=== PATIENT | female | born 1980 ===

== ENCOUNTER 2018-02-12 04:43 | Inpatient (IN) | payer MEDICAID ==
[2018-02-12] MEDS ORDERED: Phenaphthazine-PH Test Paper VI ONE (05:11)
[2018-02-12 05:43] VITALS: BMI 44.9
--- NOTE | 2018-02-12 05:47 | OBHP ---
Datetime: 02/12/2018 05:44 IP Adm Impression: Term, intrauterine IP Admit Plan: Admit to unit; Initiate labor protocol Admit Comment, IP Provider: 37 yo G1 at 40+3 wks w/ EDC 02/09/2018 by LMP, c/w 12 wk u/s who reports that she has been leaking brown fluid since . 02/08/2017, reports that she is "too much pain," pain became more intense at 5pm last night, Pt reports ctxns every 5 minutes. Pt denies VB and rep orts FM. Pt was seen at [facility] on 02/10/2018 and was sent home. Pt received PN care at [facility]. PMH: Healthy PSH: None Meds: PNVs All: NKDA Soc hx: Pt denies tobaco, alcohol, and illicit drugs Fam hx: N/c [employer] hx: menarche at 15 yo, reg periods, pt denies STDs and abn paps PN labs: 07/27/2017 pap neg, Chlamydia/Gonorrhea/ Trich neg, O+, Ab neg, UDS neg FX neg, Hbg elect nl, Hep BsAg neg, HIV neg, Quantiferon neg Rubella Immune, SMA neg 07/31/2017 Panorama low risk, male fetus 09/21/2017 AFP neg, InformaSeq neg XY male 11/16/2017 RPR neg, HIV neg, 1 hr glucola 121 01/18/2018 GBS neg PE: AFVSS Gen'l pt appears very still in bed Heart: RRR Chest: Lungs CTA b/l Abd: soft, NT, gravid Ext: 1+ edema, NT Spec: brown d/c in vault, nitrazine neg, fern not seen EFM: as above Laurium: as above A/P: 37 yo G1 at 40+3 wks w/ light meconium seen in vault Will admit to L_D GBS neg FHT reactive Abdomen - PN: Normal Back - PN: Normal Lungs - PN: Normal Heart - PN: Normal General - PN: Normal FHR - Baseline A Provider: 120's Amniotic Fluid Color, Provider: Meconium, Light Membranes, Provider: Ruptured Contraction Comments Provider: irreg EGA AdmitDate IP: 40.3 Vital Signs Provider: Reviewed IP Indication for Induction: Not Applicable IP Chief Complaint: Uterine contractions; Suspected ruptured membranes NICHD Variability Prov Fetus A: Moderate 6-25bpm NICHD Accel Fetus A IP Provider: 15X15 FHR Category Provider Fetus A: Category I NICHD Decel Fetus A IP Provider: None Dilatation, Provider: 1 Effacement, Provider: 100 Station, Provider: -2 Genitourinary Exam: Normal Datetime: 02/12/2018 05:21 Extremities - PN: Normal
[2018-02-12 06:28] LABS: HEMOGLOBIN 11.9 g/dL (12.0-16.0); MEAN CELL VOLUME 96.8 fl (81.0-99.0); MEAN CORPUSCULAR HEMOGLOBIN 31.6 pg (27.0-31.0); MEAN CORPUSCULAR HGB CONC 32.6 g/dL (33.0-37.0); RBC 3.79 Mil/uL (3.80-5.20); WHITE BLOOD COUNT 9.2 K/uL (4.8-10.8)
[2018-02-12] MEDS: Lactated Ringer's 1,000 ML IV ONE ×2 (09:30→11:00)
[2018-02-12] MEDS ORDERED: Oxytocin 30 UNIT 30 UNITS/500 ML BAG IV ONE (09:33)
--- NOTE | 2018-02-12 11:54 | OBPN ---
Datetime: 02/12/2018 09:45 IP Informed Consent Obtain: Vaginal Delivery IP Procedures: Sterile Vag Exam IP Progress Plan: Continue present management Contraction Comments Provider: irregularly FHR - Baseline A Provider: 130 IP Progress Note Comment: Patient feeling some contractions, does not want anything for pain VE=1/100/-3 FHR = 130 mod jh, +accels no decels TOCO = ctxning q irregularly A/P 1. Patient 1cm dilated, will start Pitocin for augmentation 2. Continue CEFM and TOCO 3. Will re-evluate as needed NICHD Accel Fetus A IP Provider: 15X15 NICHD Variability Prov Fetus A: Moderate 6-25bpm Dilatation, Provider: 1 Effacement, Provider: 100 Station, Provider: -3 Datetime: 02/12/2018 05:44 Membranes, Provider: Ruptured Amniotic Fluid Color, Provider: Meconium, Light Vital Signs Provider: Reviewed FHR Category Provider Fetus A: Category I NICHD Decel Fetus A IP Provider: None
[2018-02-12] MEDS: Lactated Ringer's 1,000 ML IV SCH ×2 (12:00→16:00)
[2018-02-12] MEDS ORDERED: Nalbuphine HCL 10 mg/ml Ampule IVP PRN (17:11)
[2018-02-12] MEDS ORDERED: Nalbuphine HCL 10 mg/ml Ampule ONE (17:18)
[2018-02-12] MEDS ORDERED: Fentanyl/Bupivacaine HCl 250 ML EPI ONE (19:00)
--- NOTE | 2018-02-12 19:01 | OBPN ---
Datetime: 02/12/2018 18:57 IP Progress Impression: Normal progression of labor IP Informed Consent Obtain: Vaginal Delivery IP Procedures: Sterile Vag Exam IP Progress Plan: Continue present management Membranes, Provider: Bulging Amniotic Fluid Color, Provider: Bloody Contraction Comments Provider: q 4 FHR - Baseline A Provider: 140 IP Progress Note Comment: Patient feeling increased pain with contractions VE=4/80/-2, AROM FHR = 140 mod jh, +accels, no decels TOCO = contraction q 4 mins, Pitocin @ 8 mu/min A/P 1. continue augmentation with Pitocin 2. Patient would like epidural for pain 3. CEFM and TOCO Vital Signs Provider: Reviewed; Within Normal Limits NICHD Accel Fetus A IP Provider: 15X15 NICHD Variability Prov Fetus A: Moderate 6-25bpm Dilatation, Provider: 4 Effacement, Provider: 80 Station, Provider: -2 NICHD Decel Fetus A IP Provider: None
[2018-02-13] MEDS ORDERED: Lactated Ringer's 1,000 ML IV ONE (09:13)
[2018-02-13] MEDS ORDERED: ceFAZolin IV 2 gm in Dextrose 2 GM/50 ML BAG IVPB ONE (09:13)
[2018-02-13] MEDS ORDERED: OXYTOCIN/0.9 % NS 20 UNIT/1,000 ML BAG IV ONE ×2 (09:15→16:41)
[2018-02-13] MEDS ORDERED: Oxytocin 30 UNIT 30 UNITS/500 ML BAG IV ONE (09:15)
[2018-02-13] MEDS ORDERED: Azithromycin 500 MG in Sodium Chloride 0.9% 250 ML IVPB STA (09:16)
--- NOTE | 2018-02-13 09:46 | OBPN ---
Datetime: 02/13/2018 09:04 IP Progress Impression: Arrest of dilatation/descent IP Informed Consent Obtain: Section Delivery; Risks, Benefits and Alternatives Discussed IP Procedures: Sterile Vag Exam IP Progress Plan: Deliver- Section Membranes, Provider: Ruptured Amniotic Fluid Color, Provider: Meconium, Heavy Contraction Comments Provider: Q3-4 FHR - Baseline A Provider: 150 Gestation - Est Wks by US: 40.4 Presentation-Admit: Vertex IP Progress Note Comment: Patient has now been ruptures since approximately 18:30 last night, almost 15 hours, with concurrent pitocin administration, with no cervical progress. Continues to have thick meconium Cervix is unchanged at 4cm A/P: - Plan to proceed to for failed induction, arrest of dilation in stage 1 labor - Reviewed risks/benefits/alternatives to patient including impact of future delivery mode/fertili ty, patient has been consented and all appropriate forms signed - 2g Ancef - 500mg azithromycin for post- endometritis prophylaxis Arianna Wood MD OB Fellow OB Hospitalist on-call...pt em nd examined wiht OB fellow...agree with managment...condition ex plained to pt. She understnds. Informed cosent obtianed for operative delivery Vital Signs Provider: Reviewed; Within Normal Limits NICHD Accel Fetus A IP Provider: 15X15 FHR Category Provider Fetus A: Category II NICHD Variability Prov Fetus A: Minimal - Undetectable to <5bpm Dilatation, Provider: 4 Effacement, Provider: 80 Station, Provider: -2 NICHD Decel Fetus A IP Provider: None
[2018-02-13] MEDS ORDERED: HYDROmorphone 0.5 mg/0.5 ml ISec IVP PRN ×2 (12:14→16:41)
[2018-02-13] MEDS ORDERED: DiphenhydrAMINE 50 mg/ml Inj IVP PRN ×2 (12:15→16:41)
[2018-02-13] MEDS ORDERED: Morphine 1 mg/ml preservative-free Inj(Duramorph) ONE (12:55)
[2018-02-13] MEDS ORDERED: EPINEPHrine 1 mg/ml (1:1000) Inj ONE (12:55)
[2018-02-13] MEDS ORDERED: ePHEDrine 50 mg/ml Inj ONE (12:55)
[2018-02-13] MEDS ORDERED: Oxycodone/Acetaminophen 5/325 mg Tab PO PRN ×4 (16:13→16:41)
[2018-02-13] MEDS ORDERED: Nalbuphine HCL 10 mg/ml Ampule IVP PRN (16:41)
[2018-02-13] MEDS: Lactated Ringer's 1,000 ML IV SCH (20:22)
[2018-02-13] MEDS ORDERED: Simethicone 80 mg Chewtab PO PRN (22:06)
[2018-02-13] MEDS: Simethicone 80 mg Chewtab PO PRN (22:35)
--- NOTE | 2018-02-14 01:16 | OBDS ---
DELIVERY PERSONNEL Delivery Doctor: Dr Cota Scrub Nurse: Raymundo Ramirez RN New Accounts Banking Representative: KIKI Marina;Charanjit Yang RN Anesthesiologist: Dr Wills Resident: Assistants- Dr Delgado and DR Wood MATERNAL INFORMATION Delivery Anesthesia: Spinal Medications in Delivery: Pitocin Estimated Blood Loss (ml): 800cc Placenta Cultured: No RN Comments: had primary to alive baby boy; 9/9;uneventful delivery Provider Comments: PreOpDx failure of induction Post Op Dx same Procedure: Primary LTCS via Pfannenstiel incision Surgeon Dr Cota Asst: Dr Delgado Anesth: Dr Wills Anesth: spinal Findings: -Live infant male delivered from [facility] [place] -thick meconium -Placenta delivered intact manually -Ovaries and tubes WNL EBL 800cc She remained stable All equipment sponeges needles accounted for LABOR SUMMARY EDC: 02/09/2018 00:00 No. Babies in Womb: 1 Attempted: No Labor Anesthesia: spinal LABOR INFORMATION Onset of Labor: 02/13/2018 09:00 Oxytocin: Augmentation Group B Beta Strep: Negative Steroids Given: None Reason Steroids Not Administered: Not Applicable MEMBRANES Membranes Rupture Method: Artificial Rupture of Membranes: 02/08/2018 18:50 Length of Rupture (hrs): 112.35 Amniotic Fluid Color: Bloody Amniotic Fluid Amount: Moderate Amniotic Fluid Odor: Normal STAGES OF LABOR Stage 3 hrs: 0 Stage 3 min: 1 Total Time in Labor hrs: 2 Total Time in Labor min: 12 CSECTION DELIVERY Uterine Closure: Double-layer closure BABY A INFORMATION Delivery Date/Time: 02/13/2018 11:11 Method of Delivery: Born in Route : No : N/A Forceps: N/A Vacuum Extraction: N/A Shoulder Dystocia : No SHOULDER DYSTOCIA BABY A Delivery Date/Time: 02/13/2018 11:11 PRESENTATION/POSITION BABY A Presentation: Cephalic Cephalic Presentation: Vertex Breech Presentation: N/A PLACENTA INFORMATION BABY A Placenta Delivery Time : 02/13/2018 11:12 Placenta Method of Delivery: Manual Removal Placenta Status: Delivered SCORES BABY A Heart Rate 1 min: >100 bpm Resp Effort 1 min: Good Cry Reflex Irritability 1 min: Cough or Sneeze or Pulls Away Muscle Tone 1 min: Active Motion Color 1 min: Body Pax, Extremities Blue SCORE 1 MIN: 9 Heart Rate 5 min: >100 bpm Resp Effort 5 min: Good Cry Reflex Irritability 5 min: Cough or Sneeze or Pulls Away Muscle Tone 5 min: Active Motion Color 5 min: Body Pax, Extremities Blue SCORE 5 MIN: 9 INFORMATION BABY A Gestational Age at Delivery: 41.0 Gestational Status: Term Outcome : Liveborn Condition : Stable Infant Sex: Male IDENTIFICATION/MEDS BABY A ID Band Number: [id number] WEIGHT/LENGTH BABY A Birthweight (gms): 4040 Infant Weight (lb): 8 Weight (oz): 14 CORD INFORMATION BABY A No. Cord Vessels: 3 Nuchal Cord : N/A Nuchal Cord Other: na True Knot: na Cord pH Baby Arterial: na Cord pH Baby Venous: na Cord Blood Taken: Yes Banking/Donate Info: na Suction: Mouth; Nose; Pharynx
--- NOTE | 2018-02-14 01:18 | OBDS ---
DELIVERY PERSONNEL Delivery Doctor: Dr Cota Scrub Nurse: Raymundo Ramirez RN Electronic Masking System Operator: KIKI Marina;Charanjit Yang RN Anesthesiologist: Dr Wills Resident: Assistants- Dr Delgado and DR Wood MATERNAL INFORMATION Delivery Anesthesia: Spinal Medications in Delivery: Pitocin Estimated Blood Loss (ml): 800cc Placenta Cultured: No RN Comments: had primary to alive baby boy; 9/9;uneventful delivery Provider Comments: PreOpDx failure of induction Post Op Dx same Procedure: Primary LTCS via Pfannenstiel incision Surgeon Dr Cota Asst: Dr Delgado Anesth: Dr Wills Anesth: spinal Findings: -Live infant male delivered from [facility] [place] -thick meconium -Placenta delivered intact manually -Ovaries and tubes WNL EBL 800cc She remained stable All equipment sponeges needles accounted for LABOR SUMMARY EDC: 02/09/2018 00:00 No. Babies in Womb: 1 Attempted: No Labor Anesthesia: spinal LABOR INFORMATION Onset of Labor: 02/13/2018 09:00 Oxytocin: Augmentation Group B Beta Strep: Negative Steroids Given: None Reason Steroids Not Administered: Not Applicable MEMBRANES Membranes Rupture Method: Artificial Membranes Rupture Method: Spontaneous Membranes Rupture Method: Spontaneous Rupture of Membranes: 02/08/2018 18:50 Length of Rupture (hrs): 112.35 Amniotic Fluid Color: Bloody Amniotic Fluid Color: Light Meconium Amniotic Fluid Color: Light Meconium Amniotic Fluid Amount: Moderate Amniotic Fluid Amount: Scant Amniotic Fluid Amount: Small Amniotic Fluid Odor: Normal Amniotic Fluid Odor: Normal STAGES OF LABOR Stage 3 hrs: 0 Stage 3 min: 1 Total Time in Labor hrs: 2 Total Time in Labor min: 12 CSECTION DELIVERY Uterine Closure: Double-layer closure BABY A INFORMATION Delivery Date/Time: 02/13/2018 11:11 Method of Delivery: Born in Route : No : N/A Forceps: N/A Vacuum Extraction: N/A Shoulder Dystocia : No SHOULDER DYSTOCIA BABY A Infant Delivery Date/Time: 02/13/2018 11:11 PRESENTATION/POSITION BABY A Presentation: Cephalic Cephalic Presentation: Vertex Breech Presentation: N/A PLACENTA INFORMATION BABY A Placenta Delivery Time : 02/13/2018 11:12 Placenta Method of Delivery: Manual Removal Placenta Status: Delivered SCORES BABY A Heart Rate 1 min: >100 bpm Resp Effort 1 min: Good Cry Reflex Irritability 1 min: Cough or Sneeze or Pulls Away Muscle Tone 1 min: Active Motion Color 1 min: Body [place], Extremities Blue SCORE 1 MIN: 9 Heart Rate 5 min: >100 bpm Resp Effort 5 min: Good Cry Reflex Irritability 5 min: Cough or Sneeze or Pulls Away Muscle Tone 5 min: Active Motion Color 5 min: Body [place], Extremities Blue SCORE 5 MIN: 9 INFORMATION BABY A Gestational Age at Delivery: 41.0 Gestational Status: Term Infant Outcome : Liveborn Condition : Stable Sex: Male IDENTIFICATION/MEDS BABY A ID Band Number: [id number] WEIGHT/LENGTH BABY A Birthweight (gms): 4040 Infant Weight (lb): 8 Weight (oz): 14 CORD INFORMATION BABY A No. Cord Vessels: 3 Nuchal Cord : N/A Nuchal Cord Other: na True Knot: na Cord pH Baby Arterial: na Cord pH Baby Venous: na Cord Blood Taken: Yes Banking/Donate Info: na Infant Suction: Mouth; Nose; Pharynx
[2018-02-14] MEDS: Lactated Ringer's 1,000 ML IV SCH (06:16)
[2018-02-14 06:25] LABS: HEMOGLOBIN 8.3 g/dL (12.0-16.0); MEAN CELL VOLUME 94.4 fl (81.0-99.0); MEAN CORPUSCULAR HEMOGLOBIN 31.8 pg (27.0-31.0); MEAN CORPUSCULAR HGB CONC 33.7 g/dL (33.0-37.0); RBC 2.6 Mil/uL (3.80-5.20); RED CELL DISTRIBUTION WIDTH 15.1 % (11.5-14.5); WHITE BLOOD COUNT 9.8 K/uL (4.8-10.8)
[2018-02-14] MEDS ORDERED: Multivitamin With Minerals Tab PO SCH (09:00)
--- NOTE | 2018-02-14 09:19 | OBPPN ---
Datetime: 02/14/2018 06:00 PP Pain Prov: Within normal limits PP Nausea Prov: Denies PP Flatus Prov: Yes PP BM Prov: No PP Breasts Prov: Not Done PP Heart Prov: Normal PP Lungs Prov: Normal PP Abdomen/Uterus Prov: Normal PP Lochia Prov: Normal PP Vulva/Perineum Prov: Not Done PP CVA Tenderness Prov: Not Done PP Extremities Prov: Normal PP C/S Incision Prov: Normal PP Progress Prov: Normal PP Impression Prov: Normal progression PP Plan Prov: Continue present management PP Progress Note Prov: POD 1 S: 37 y/o female s/p on 02/13/2018. Patient seen and examined at bedside. She c/o upp er abdominal pain and feeling "gassy." As a result, she has been taking shallow breaths to avoid havi ng abdominal pain. She has been refusing pain medication, per nurse. Patient also refusing incentive spirometry. She denies CP, SOB, headache, n/v. She endorses passing gas, but no BM. She is not having difficulties . O: BP 137.80, HR 88, T 100.9, O2 Sat 90% at bedside GEN: Patient is uncomfortable, not in acute distress Cardio: S1S2 present, RRR Lungs: clear air entry sounds b/l, no wheezing Abdomen: BS+, tenderness to palpation. incision intact, no erythema/swelling/warmth. [place] sampson is firm and at the level of the umbilicus. EXT: No edema, calves non-tender to palpation Assessment/Plan: 37 y/o s/pod#1 at 40.4 wks on 02/13/2018 - D/c sue this AM - Remove dressing later today - Advance diet as tolerated. - SCDs for DVT prophylaxis, encouraged ambulating - Advised patient to use incentive spirometry; O2 Sat mid 90s. Will cont. to monitor - Percocet 5/325mg, and Motrin 600mg prn for pain. - Mylicon chewable tabs - Senokot for constipation - Anticipated discharge is 02/16/2018 Lisa Stallworth, pgy1 The patient was seen with the resident I agree with the note Vital Signs Provider PP: Reviewed Vital Signs Provider Details PP: Patient O2 saturation 89%-90s%
[2018-02-14] MEDS: Multivitamin With Minerals Tab PO SCH (09:28)
[2018-02-14] MEDS: Simethicone 80 mg Chewtab PO PRN ×3 (10:24→22:22)
[2018-02-14] MEDS ORDERED: Tdap Vaccine 0.5 ml Vial (10-64 yrs) IM ONE (17:00)
[2018-02-14] MEDS ORDERED: Influenza Vaccine 60 mcg/0.5 mL SYR (4YR UP) IM ONE (17:00)
[2018-02-15] MEDS: Multivitamin With Minerals Tab PO SCH (08:34)
[2018-02-15] MEDS: Simethicone 80 mg Chewtab PO PRN ×2 (08:38→18:11)
[2018-02-15] MEDS ORDERED: Tdap Vaccine 0.5 ml Vial (10-64 yrs) IM ONE (16:00)
--- NOTE | 2018-02-15 17:52 | US ---
Date of service: 02/15/2018 PROCEDURE: Bilateral lower extremity venous duplex Doppler. HISTORY: B/L lower ext edema, S/P 02/13/18 COMPARISON: None available. TECHNIQUE: Bilateral common femoral, superficial femoral, popliteal and posterior tibial veins were evaluated. Flow was assessed with color Doppler, compressibility, assessment of phasic flow and augmentation response. FINDINGS: COMMON FEMORAL VEIN: Right CFV: Unremarkable. Left CFV: Unremarkable. SUPERFICIAL FEMORAL VEIN: Right SFV: Unremarkable. Left SFV: Unremarkable. POPLITEAL VEIN: Right Popliteal: Unremarkable. Left Popliteal: Unremarkable. POSTERIOR TIBIAL VEIN: Right PTV: Unremarkable. Left PTV: Unremarkable. OTHER FINDINGS: Morphologically, unremarkable lymph node(s) right inguinal node 1.4 x 0.7 x 2.8 cm. Left inguinal node 1 x 0.7 x 3.5 cm. IMPRESSION: No evidence of deep venous thrombosis.
[2018-02-16] MEDS: Simethicone 80 mg Chewtab PO PRN (08:15)
[2018-02-16] MEDS: Multivitamin With Minerals Tab PO SCH (08:15)
[2018-02-16] MEDS ORDERED: Tdap Vaccine 0.5 ml Vial (10-64 yrs) IM ONE (09:00)
[2018-02-16 12:49] VITALS: BP 136/81
[2018-02-16 22:28] VITALS: PULSE 68; RESP 18; TEMP 98.8; O2SAT 98
--- NOTE | 2018-02-19 07:39 | OP ---
PROCEDURE DATE: 02/13/2018 PREOPERATIVE DIAGNOSIS: Failed induction. POSTOPERATIVE DIAGNOSIS: Failed induction. PROCEDURE: Primary low-transverse section via Pfannenstiel incision. SURGEON: Guilherme Cota DO DERMATOLOGY PHYSICIAN: Dr. Cristi Delgado (Dr Delgado is a board certified OBGYN who was available to assist on this case. he was present from skin incision, to delivery of the infant to the skin closure. His presence was vital and necessary for the procedure.) ANESTHESIOLOGIST: Radha Wills MD ANESTHESIA: Spinal. OPERATIVE FINDINGS: A live male , delivered from cephalic presentation. Thick meconium. Placenta was delivered intact manually. Ovaries and tubes appeared to be within normal limits. She remained hemodynamically stable throughout the procedure. All equipment, sponges, and needles accounted for. ESTIMATED BLOOD LOSS: 800 mL. DESCRIPTION OF PROCEDURE: The patient was brought to the operating room. She had an indwelling Singh catheter in place and compression boots on both lower extremities. Decision was made to repeat the anesthesia. She was given spinal anesthesia. She was placed in a supine position. After which, she was then draped and prepped in the usual sterile manner. Once adequate anesthesia was obtained, a Pfannenstiel incision was made using a scalpel. Incision was then taken down to the underlying fascia using electrocautery. The fascia was nicked in the midline. The fascia was then extended bilaterally using curved Solis scissors. The inferior aspect of the fascia was grasped using two Mio clamps, tented up, and the rectus muscle was both bluntly and sharply dissected using curved Solis scissors. Same was done with the superior aspect of the fascia. In the midline superiorly, the rectus muscle was bluntly. Good amount of preperitoneal fat was noted. We were able to enter the peritoneum bluntly. The incision was then extended inferiorly and superiorly with direct visualization of bladder and intestines. A bladder blade was then inserted. Two lap pads were placed to mobilize the omentum superiorly. Then, the bladder flap was created by incising peritoneum on the uterus and extending bilaterally using Metzenbaum scissors. Bladder blade was then inserted behind the bladder flap. A low-transverse incision was made using a scalpel. Upon entering the uterus, the incision was then extended bilaterally digitally. The infant's head was then delivered as atraumatically as possible with bulb suctioned nasopharyngeally. The remainder of the infant was then delivered as traumatically as possible. Thick meconium was noted. Cord was clamped and cut. The was handed to header setup operator in attendance. Placenta was then delivered intact manually. score of 9 and 9 given at one and five minutes respectively. Good contracture of the uterus was noted. Uterus was cleared of debris and clots. Good contracture of the uterus was noted. A 0 Vicryl suture was used to close the first layer of the uterus in interlocking fashion. Second layer of the uterus was closed using 0 Vicryl suture imbricating the first layer. Good hemostasis was assured. A double layer closure was done using 0 Vicryl suture. Hemostasis being assured. Posterior cul-de-sac was noted to be cleared of debris and clots. The uterus was placed back into peritoneal cavity. Irrigation was performed. Hemostasis was assured. All equipments were removed and accounted for. A 0 Vicryl suture was used to approximate the peritoneum in a running fashion. The rectus muscle was noted to have good hemostasis and approximated x2 using 0 Vicryl suture. Hemostasis being assured. A 0 Vicryl suture was used to approximate the fascial layer in a running fashion. Hemostasis was assured using electrocautery. A 2-0 plain suture was used to approximate the subcuticular layer, 3-0 plain suture, Dermabond, Steri-Strips and pressure bandage were applied. She tolerated the procedure well. Clear urine was noted to be draining from the bladder before, during and after the procedure. Guilherme Cota DO MTDSofía
== END 2018-02-16 17:00 | disposition home or self-care (01) | DRG 540 ==
LOC: H.EROB2 04:43 → H.L&D 05:50 → H.OB/GYN 02-13 16:22
PROVIDERS: ADMIT Obstetrics & Gynecology; ATTEND Obstetrics & Gynecology
PROC: 10D00Z1 Extraction of Products of Conception, Low, Open Approach (ICD-10-PCS; principal; 2018-02-12)
PROC: 4A1HXCZ Monitoring of Products of Conception, Cardiac Rate, External Approach (ICD-10-PCS; 2018-02-12)
DX: O62.0 Primary inadequate contractions (principal); O61.9 Failed induction of labor, unspecified; O77.0 Labor and delivery complicated by meconium in amniotic fluid; Z37.0 Single live birth; Z3A.41 41 weeks gestation of pregnancy